=== PATIENT | female | born 1940 | race Caucasian/White ===

== ENCOUNTER 2020-02-25 10:08 | Emergency (ER) | payer OTHER, MEDICARE ==
[2020-02-25 10:17] VITALS: TEMP 98.7; BMI 21.6
--- NOTE | 2020-02-25 10:18 | PDOC ---
Rapid Medical Evaluation Chief Complaint: Pain Time Seen by Provider: 02/25/20 10:13 Medical Evaluation: Allergies Allergy/AdvReac Type Severity Reaction Status Date / Time amoxicillin Allergy Itching Verified 02/25/20 10:16 Penicillins Allergy Itching Verified 02/25/20 10:16 Vital Signs Temp Pulse Resp BP Pulse Ox 98.7 F 77 18 102/68 99 02/25/20 10:13 02/25/20 10:13 02/25/20 10:13 02/25/20 10:13 02/25/20 10:13 02/25/20 10:17 I have performed a brief in-person evaluation of this patient. The patient presents with a chief complaint of:LLQ pain x 1 day. No n/v/f/c, change in BM or dysuria. H/o uncomplicated diverticulitis, HTN, chronic LBP Pertinent physical exam findings:stable, NAD I have ordered the following:labs The patient will proceed to the ED for further evaluation Discharge Disposition - Diagnosis Abdominal pain Qualifiers: Abdominal location: lower abdomen, unspecified Qualified Code(s): R10.30 - Lower abdominal pain, unspecified - Referrals - Patient Instructions - Post Discharge Activity
[2020-02-25] MEDS ORDERED: ACETAMINOPHEN 1000 MG/100 ML VIAL (NON FORMULARY) IVPB ONE (10:58)
--- NOTE | 2020-02-25 11:09 | PDOC ---
Documentation entered by Maddie Devries SCRIBE, acting as scribe for Rocco Mckee MD. Rocco Mckee MD: This documentation has been prepared by the Kayce vela Adrianna, SCRIBE, under my direction and personally reviewed by me in its entirety. I confirm that the documentation accurately reflects all work, treatment, procedures, and medical decision making performed by me. History of Present Illness - General Chief Complaint: Pain Stated Complaint: PCP SENT Time Seen by Provider: 02/25/20 10:13 - History of Present Illness Initial Comments: The patient is a 79 year old female, with a significant PMH of HTN, HLD, chronic low back pain, asthma and diverticulitis, who presents to the ED for evaluation of abdominal pain for one day. Patient complains of left lower quadrant pain that began last night, that is non-radiating and waxing/weaning in nature. She endorses some intermittent diarrhea for a while, but reports being constipated since yesterday. Patient had diverticulitis ~6 years ago, was admitted to the hospital, and was advised by her PCP to come directly to the ER for imaging if her symptoms ever returned. Denies fever, chills, chest pain, SOB, cough, nausea, vomit, dysuria, hematuria, blood in stool, melena. Allergies: amoxicillin, penicillin Surgical History: Hysterectomy Social History: No toxic habits PCP: Dr. Rivera Past History - Medical History Allergies/Adverse Reactions: Allergies Allergy/AdvReac Type Severity Reaction Status Date / Time amoxicillin Allergy Itching Verified 02/25/20 10:16 Penicillins Allergy Itching Verified 02/25/20 10:16 Home Medications: Ambulatory Orders Amlodipine Besylate/Benazepril [Lotrel 5-10 mg Capsule] 1 each PO HS 07/29/14 Atorvastatin Ca [Lipitor] 40 mg PO HS 07/29/14 Metoprolol Succinate [Toprol XL -] 25 mg PO DAILY 07/29/14 Fluticasone/Salmeterol [Advair 250-50 Diskus] 1 each IH BID PRN 02/28/16 Sulfamethoxazole/Trimethoprim [Bactrim Ds -] 1 tab PO BID #14 tablet 02/25/20 metroNIDAZOLE [Flagyl -] 500 mg PO TID #21 tablet 02/25/20 Asthma: Yes COPD: No GI Disorders: Yes (diverticulitis) HTN: Yes Hypercholesterolemia: Yes - Surgical History Abdominal Surgery: Yes (colon resection for diverticulitis) - Psycho-Social/Smoking History Smoking Status: No Smoking History: Never smoked Have you smoked in the past 12 months: No Number of Cigarettes Smoked Daily: 0 Review of Systems - Review of Systems Comments:: CONSTITUTIONAL: No reported: Fever, Chills, Diaphoresis, Generalized Weakness, Malaise, Loss of Appetite HEENT: No reported: Rhinorrhea, Nasal Congestion, Throat Pain, Throat Swelling, Difficulty Swallowing, Mouth Swelling, Ear Pain, Eye Pain, Visual Changes CARDIOVASCULAR: No reported: Chest Pain, Syncope, Palpitations, Irregular Heart Rate, L ightheadedness, Peripheral Edema RESPIRATORY: No reported: Cough, Shortness of Breath, SOB with Exertion, Orthopnea, Wheezing, Stridor, Hemoptysis GASTROINTESTINAL: +LLQ abdominal pain. +Intermittent diarrhea for a while. +Constipation. No reported: Abdominal Distension, Nausea, Vomiting, Melena, Hematochezia GENITOURINARY: No reported: Dysuria, Frequency, Urgency, Hesitancy, Flank Pain, Genital Pain MUSCULOSKELETAL: No reported: Myalgia, Arthralgia, Joint Swelling, Back pain, Neck Pain SKIN: No reported: Rash, Itching, Pallor HEMATOLOGIC/IMMUNOLOGIC: No reported: Easy Bleeding, Easy Bruising, Lymphadenopathy, Frequent infections ENDOCRINE: No reported: Unexplained Weight Gain, Unexplained Weight Loss, Heat Intolerance, Cold Intolerance NEUROLOGIC: No reported: Headache, Focal Weakness, Paresthesias, Vertigo, Lightheadedness, Unsteady Gait, Seizure, Mental Status Changes, Incontinence PSYCHIATRIC: No reported: Anxiety, Depression *Physical Exam - Vital Signs Last Vital Signs Temp Pulse Resp BP Pulse Ox 98.7 F 77 18 102/68 99 02/25/20 10:13 02/25/20 10:13 02/25/20 10:13 02/25/20 10:13 02/25/20 10:13 - Physical Exam GENERAL: The patient is awake, alert, and fully oriented, Nontoxic - in no acute distress. HEAD: Normocephalic, atraumatic. EYES: extraocular movements intact, sclera anicteric, conjunctiva clear. ENT: Normal voice, Moist mucous membranes. NECK: Normal range of motion, supple LUNGS: Breath sounds equal, clear to auscultation bilaterally. No wheezes, no rhonchi, no rales. HEART: Regular rate and rhythm, without murmur, rub or gallop. ABDOMEN: + LLQ TTP, No guarding, no rebound.No CVA tenderness EXTREMITIES: Normal range of motion, no edema. No cyanosis. No erythema, or tenderness. NEUROLOGICAL: No facial asymmetry, Normal speech, PSYCH: Normal mood, normal affect. SKIN: Warm, Dry, normal turgor. ED Treatment Course - LABORATORY CBC & Chemistry Diagram: 02/25/20 11:00 02/25/20 11:00 - RADIOLOGY Radiograph Interpretation: EXAM#: TYPE/EXAM: RESULT: [id number] CT/ABDOMEN PELVIS CT WITH CONTR Left lower quadrant pain IMPRESSION: Diverticulosis coli in the sigmoid and the distal descending colon. Minimal mesenteric stranding seen surrounding the proximal sigmoid colon at the site of previously described diverticulitis that may represent chronic changes/scarring. Minimal superimposed uncomplicated acute diverticulitis could not be excluded. Reported By: Lamont Prince MD 02/25/20 14:18 Medical Decision Making - Medical Decision Making 02/25/20 14:34 79 F with LLQ abdominal pain. Suspect diverticulitis. - Labs - CTAP - Tylenol 02/25/20 14:34 CT shows diverticulosis with mesenteric stranding. ? scar tissue vs diverticulitis. Given pt's symptoms and leukocytosis on labs, will tx for diverticulitis. Pt is well appearing, with normal vitals. Clinically stable for DC at this time. I discussed the physical exam findings, ancillary test results and final diagnoses with the patient. I answered all of the patient's questions. The patient was satisfied with the care received and felt comfortable with the discharge plan and treatment plan. The patient agrees to follow up with the primary care physician within 24-72 hours. Please note this patient was evaluated during the COVID-19 crisis with the presidential [place] Act Declaration and the [place] governor executive order number 202. He/she was evaluated and clinical decisions were made relative to healthcare system resources as well as clinical picture during a pandemic crisis situation. Discharge - Discharge Information Problems reviewed: Yes Clinical Impression/Diagnosis: Diverticulitis Abdominal pain Qualifiers: Abdominal location: lower abdomen, unspecified Qualified Code(s): R10.30 - Lower abdominal pain, unspecified Disposition: HOME - Additional Discharge Information Prescriptions: Sulfamethoxazole/Trimethoprim [Bactrim Ds -] 1 tab PO BID #14 tablet metroNIDAZOLE [Flagyl -] 500 mg PO TID #21 tablet - Follow up/Referral Referrals: Anamika Rivera MD [Primary Care Provider] - - Patient Discharge Instructions Patient Printed Discharge Instructions: DI for Diverticulitis Additional Instructions: Your CT scan today showed you may have diverticulitis. Take the antibiotics as prescribed to treat it. If you experience worsening pain, vomiting, fevers, or any other concerning symptoms, return to the ER immediately. Otherwise, follow up with your primary doctor within 1 week. - Post Discharge Activity
[2020-02-25] MEDS ORDERED: ACETAMINOPHEN INJECTION 100 ML IVPB ONE (11:13)
[2020-02-25 11:26] LABS: BASO % 0.5 % (0-2.0); EOS % 0.4 % (0-4.5); HEMATOCRIT 39.6 % (32.4-45.2); HEMOGLOBIN 12.8 GM/dL (10.7-15.3); LYMPH % 7.3 % (8-40); MCH 30.6 pg (25.7-33.7); MCHC 32.4 g/dl (32.0-36.0); MEAN CELL VOLUME 94.4 fl (80-96); MEAN PLT VOLUME 7.4 fl (7.5-11.1); MONO % 5.9 % (3.8-10.2); NEUT % 85.9 % (42.8-82.8); PLATELET COUNT 303 K/MM3 (134-434); RDW 12.9 % (11.6-15.6); WHITE BLOOD COUNT 15.5 K/mm3 (4.0-10.0)
[2020-02-25 11:55] LABS: ALBUMIN 4.3 g/dl (3.4-5.0); BILIRUBIN,TOTAL 0.8 mg/dL (0.2-1); BLOOD UREA NITROGEN 16.8 mg/dL (7-18); CALCIUM 9.6 mg/dL (8.5-10.1); CREATININE 0.9 mg/dL (0.55-1.3); POTASSIUM 4.1 mmol/L (3.5-5.1); TOT PROT 7.5 g/dl (6.4-8.2)
[2020-02-25 14:06] LABS: URINE APPEARANCE CLEAR; URINE BILIRUBIN NEGATIVE (NEGATIVE); URINE COLOR YELLOW; URINE GLUCOSE (UA) NEGATIVE (NEGATIVE); URINE KETONE NEGATIVE (NEGATIVE); URINE LEUK ESTERASE NEGATIVE (NEGATIVE); URINE NITRITE NEGATIVE (NEGATIVE); URINE PROTEIN NEGATIVE (NEGATIVE); URINE UROBILINOGEN 0.2 mg/dL (0.2-1.0)
[2020-02-25 14:09] LABS: EPI CELLS 5.7 /uL (0-25.1); HYALINE CASTS 2.18 /uL (0-3.1); URINE BACTERIA 35.3 /uL (0-1359); URINE RBC 9.6 /uL (0-23.9); URINE WBC 13.7 /uL (0-25.8)
[2020-02-25 14:49] VITALS: BP 122/78; PULSE 85
== END 2020-02-25 15:07 | disposition home or self-care (01) ==
LOC: JER 10:08
PROC: 3E033GC Introduction of Other Therapeutic Substance into Peripheral Vein, Percutaneous Approach (ICD-10-PCS; principal; 2020-02-25)
DX: K57.92 Diverticulitis of intestine, part unspecified, without perforation or abscess without bleeding (principal)
CPT/HCPCS: 36415; 74177-TC; 80053; 81003; 83605; 83690; 85025; 99285-25; J0131; Q9967

== ENCOUNTER 2024-03-25 04:28 | Day surgery (SDC) | payer OTHER ==
[2024-03-20 13:07] VITALS: BMI 23.6
[2024-03-25 08:36] VITALS: TEMP 98.4
[2024-03-25 09:09] VITALS: BP 118/74; PULSE 65; RESP 16
== END 2024-03-25 09:15 | disposition home or self-care (01) ==
LOC: JASU-ENDO 04:28
PROVIDERS: ATTEND Internal Medicine Gastroenterology
PROC: 0DBP8ZX Excision of Rectum, Via Natural or Artificial Opening Endoscopic, Diagnostic (ICD-10-PCS; principal; 2024-03-25 08:00)
DX: D12.8 Benign neoplasm of rectum (principal); K57.30 Diverticulosis of large intestine without perforation or abscess without bleeding; K55.21 Angiodysplasia of colon with hemorrhage; K64.8 Other hemorrhoids
CPT/HCPCS: 88305-TC